=== PATIENT | female | born 2000 | race Caucasian/White ===

== ENCOUNTER 2021-06-22 14:20 | Observation (INO) | payer BC ==
[~2021-06-22] VITALS: Ht 167.6 cm; Wt 54.4 kg
[2021-06-22 14:37] VITALS: BP 113/66
[2021-06-22 15:51] LABS: URINE BILIRUBIN NEGATIVE (Negative); URINE BLOOD NEGATIVE (Negative); URINE CLARITY CLEAR; URINE COLOR YELLOW; URINE GLUCOSE-RANDOM NEGATIVE (Negative); URINE KETONES 2+ (Negative); URINE LEUKOCYTES-REFLEX NEGATIVE (Negative); URINE NITRITE-REFLEX NEGATIVE (Negative); URINE PROTEIN NEGATIVE (Negative); URINE UROBILINOGEN 0.2 E.U./dl (0.2-1.0)
[2021-06-22 16:05] LABS: HEMATOCRIT 40.9 % (37.0-47.0); HEMOGLOBIN 14.1 gm/dL (12.0-15.0); MCH 30.8 pg (26.0-34.0); MCHC 34.4 g/dL (28.0-37.0); MCV 89.4 fL (80.0-100.0); MPV 9.4 fl. (7.2-11.1); NUCLEATED RBCS 0 /100WBC; PLATELET COUNT* 234 thou/uL (150-400); RBC 4.57 mil/uL (4.20-5.00); RDW-CV 12.8 % (10.5-14.5)
[2021-06-22 16:13] LABS: CALCIUM 9.1 mg/dL (8.5-10.1); POTASSIUM 3.4 mmol/L (3.5-5.1)
[2021-06-22 16:17] LABS: ALBUMIN 4.1 g/dL (3.4-5.0); TOTAL BILIRUBIN 0.5 mg/dL (<0.1-1.0); TOTAL PROTEIN 7.3 g/dL (6.4-8.2)
[2021-06-22 16:44] LABS: ABSOLUTE LYMPHOCYTES 0.6 thou/uL (0.8-5.3); ABSOLUTE MONOCYTES 0.2 thou/uL (0.0-1.2); ABSOLUTE NEUTROPHILS 20.2 thou/uL (1.6-8.1); PLATELET ESTIMATE ADEQUATE
--- NOTE | 2021-06-22 19:38 | NUR ---
PATIENT STATES SHE WOULD LIKE JESSICA LEE [phone], MOTHER, TO BE GIVEN UPDATES ON HER CARE IF SHE CALLS
[2021-06-22 22:15] VITALS: BP 117/60
[2021-06-23 02:00] VITALS: BP 115/59
[2021-06-23 09:35] VITALS: BP 103/61
[2021-06-23 10:31] LABS: HEMATOCRIT 31.6 % (37.0-47.0); MCHC 33.9 g/dL (28.0-37.0); MCV 91.5 fL (80.0-100.0); MPV 9.4 fl. (7.2-11.1); RBC 3.45 mil/uL (4.20-5.00); RDW-CV 12.2 % (10.5-14.5); WBC 18.1 thou/uL (4.0-11.0)
[2021-06-23 10:32] LABS: HEMOGLOBIN 10.7 gm/dL (12.0-15.0)
[2021-06-23 10:37] LABS: CREATININE 0.9 mg/dL (0.6-1.3)
[2021-06-23 10:42] LABS: CALCIUM 7.1 mg/dL (8.5-10.1)
[2021-06-23 10:43] LABS: POTASSIUM 2.8 mmol/L (3.5-5.1)
[2021-06-23 12:10] VITALS: BP 105/60
[2021-06-23 12:35] LABS: CALCIUM 7.1 mg/dL (8.5-10.1); CREATININE 0.8 mg/dL (0.6-1.3); POTASSIUM 3.1 mmol/L (3.5-5.1)
[2021-06-23 12:39] LABS: MAGNESIUM 1.5 mg/dL (1.8-2.4); PHOSPHORUS* 2.1 mg/dL (2.5-4.9)
[2021-06-23 16:00] VITALS: BP 130/58; BP 146/78
[2021-06-23] MEDS ORDERED: CEFDINIR300 MG PO (18:05)
[2021-06-23 18:18] VITALS: BP 130/58
[2021-06-23 19:46] VITALS: BP 130/58
== END 2021-06-23 19:00 | disposition home or self-care (01) ==
LOC: M.ERS 14:20 → M.TBA-ER 18:02 → M.2W 21:07 → M.TBA-ER 21:07 → M.2W 06-23 09:45
PROVIDERS: Family Medicine; Physician Assistant; ADMIT Internal Medicine; ATTEND Internal Medicine
DX: A41.9 Sepsis, unspecified organism (principal); J18.9 Pneumonia, unspecified organism; Z20.822 Contact with and (suspected) exposure to COVID-19; E87.6 Hypokalemia; R11.2 Nausea with vomiting, unspecified; R53.83 Other fatigue; R05 Cough; R09.81 Nasal congestion